=== PATIENT | female | born 1945 | race Caucasian/White ===

== ENCOUNTER 2021-08-23 18:31 | Observation (INO) | payer MEDICARE, OTHER ==
[~2021-08-23] VITALS: Ht 165.1 cm; Wt 54.9 kg
[2021-08-23 20:25] LABS: HEMOGLOBIN 11.8 gm/dl (12.3-15.3); RED BLOOD COUNT 4.06 M/UL (4.00-5.10); WHITE BLOOD COUNT 5.6 K/UL (4.5-11.0)
[2021-08-23 20:48] LABS: BUN/CREATININE RATIO 26 (0-10)
[2021-08-24] MEDS ORDERED: PROAIR HFA8.5 GM INH (10:39)
[2021-08-24] MEDS ORDERED: CLOPIDOGREL75 MG PO (10:40)
[2021-08-24] MEDS ORDERED: GABAPENTIN600 MG PO (10:40)
[2021-08-24] MEDS ORDERED: HYDROCODON-ACE1 EAC2 PO (10:40)
[2021-08-24] MEDS ORDERED: ESOMEPRAZOLE MA40 MG PO (10:41)
[2021-08-24] MEDS ORDERED: ESCITALOPRAM OX10 MG PO (10:41)
[2021-08-24] MEDS ORDERED: AMLODIPINE BESY10 MG PO (10:41)
[2021-08-24] MEDS ORDERED: NARCAN4 MG (10:41)
[2021-08-24] MEDS ORDERED: MULTIPLE VITAM1 EAC1 PO (10:42)
[2021-08-24] MEDS ORDERED: TYLENOL EXTRA500 MG PO (10:42)
[2021-08-25 03:45] LABS: HEMOGLOBIN 11.1 gm/dl (12.3-15.3); RED BLOOD COUNT 3.77 M/UL (4.00-5.10)
[2021-08-25 03:47] LABS: WHITE BLOOD COUNT 4.1 K/UL (4.5-11.0)
[2021-08-25] MEDS ORDERED: COZAAR 50MG TAB50 MG PO (12:00)
[2021-08-25] MEDS ORDERED: CARVEDILOL25 MG PO (12:00)
[2021-08-25] MEDS ORDERED: LEVOTHYROXINE50 MCG PO (12:00)
== END 2021-08-25 17:07 | disposition home or self-care (01) ==
LOC: ER1 18:31 → CDU 08-24 02:33 → MED SURG 4 08-24 21:55
PROVIDERS: Physician Assistant; ADMIT Internal Medicine
DX: R77.8 Other specified abnormalities of plasma proteins (principal); I16.0 Hypertensive urgency; U07.1 COVID-19; I71.4 Abdominal aortic aneurysm, without rupture; E03.9 Hypothyroidism, unspecified; I10 Essential (primary) hypertension; F17.210 Nicotine dependence, cigarettes, uncomplicated; N39.0 Urinary tract infection, site not specified; Z88.5 Allergy status to narcotic agent; Z79.899 Other long term (current) drug therapy
CPT/HCPCS: ECHO; 0240U; 36415; 71045; 80048; 80053; 80061; 81001; 82150; 82550; 82553; 83036; 83605; 83690; 83735; 83880; 84439; 84443; 84484; 85025; 85610; 85652; 85730; 86140; 87086; 93005; 93306; 96365; 96372; 96375; 96376; 99285; C9113; G0378; J0696; J1650; J2405; J2543; Q9967